=== PATIENT | female | born 1995 | race African-American/Black ===

== ENCOUNTER 2017-01-03 09:44 | Emergency (ER) | payer SELFPAY ==
[2017-01-03] MEDS ORDERED: NS 1,000 ML IV ONE (09:53)
[2017-01-03 10:00] LABS: % IMMATURE GRANULYOCYTES 0.2 % (0.0-1.1); ABSOLUTE IMMATURE GRANULOCYTES 0.01 10^3/uL (0.00-0.10); ADD DIFF? NO; ADD MORPH? NO; ADD SCAN? NO; ATYPICAL LYMPHOCYTE FLAG 10 (0-99); FRAGMENT RBC FLAG 0 (0-99); HEMATOCRIT 40.8 % (38.0-47.0); HEMOGLOBIN 13.9 g/dL (12.6-16.3); LEFT SHIFT FLG 0 (0-99); LIPEMIA HEMOLYSIS FLAG 90 (0-99); MEAN CELL HEMOGLOBIN 31.7 pg (27.9-34.1); MEAN CELL HEMOGLOBIN CONCENTR. 34.1 g/dL (32.4-36.7); MEAN CELL VOLUME 92.9 fL (81.5-99.8); MEAN PLATELET VOLUME 9.4 fL (8.7-11.7); PLATELET CLUMPS FLAG 10 (0-99); PLATELET COUNT 315 10^3/uL (150-400); RED BLOOD CELL COUNT 4.39 10^6/uL (4.18-5.33); RED CELL DISTRIBUTION WIDTH 13.5 % (11.5-15.2)
--- NOTE | 2017-01-03 10:00 | EDPHY ---
H & P HPI/ROS: CHIEF COMPLAINT: Syncope HISTORY OF PRESENT ILLNESS: 21-year-old female presents after a syncopal episode. She is currently homeless and slept outside last night. She apparently had a syncopal episode [place] front of the [place] this morning. She states that she felt lightheaded and nauseated and then lost consciousness. She did not injure herself. No prior history of recurrent syncopal episodes. Last menstrual period was 12/15/2016, and regular. REVIEW OF SYSTEMS: Constitutional: No fever, no chills Eyes: No visual changes ENT: No sore throat Respiratory: No cough, no shortness of breath Cardiac: No chest pain Gastrointestinal: No nausea, no vomiting, no abdominal pain Genitourinary: no dysuria Musculoskeletal: No leg pain or swelling Skin: No rash Neurological: No headache Psychiatric: Anxiety Past Medical/Surgical History: Denies Social History: Homeless, moved from [place] 3 days ago to go to art school at [employer]. Physical Exam: General Appearance: Alert, well-appearing Eyes: Pupils equal and round, no conjunctival pallor or injection ENT, Mouth: Mucous membranes moist Neck: Normal inspection, no tenderness Respiratory: Lungs are clear to auscultation Cardiovascular: Regular rate and rhythm Gastrointestinal: Abdomen is soft and nontender Neurological: Alert, oriented x3, cranial nerves II through XII intact, motor 5 /5, sensory intact to light touch, normal gait. Skin: Warm and dry, no rash Extremities: Nontender, no pedal edema Psychiatric: Tearful Constitutional: Initial Vital Signs Temperature (C) 36.9 C 01/03/17 10:07 Heart Rate 99 01/03/17 10:07 Respiratory Rate 18 01/03/17 10:07 Blood Pressure 137/99 H 01/03/17 10:07 O2 Sat (%) 94 01/03/17 10:07 O2 Delivery Mode Room Air Medical Decision Making - Diagnostics EKG Interpretation: EKG interpreted by me reveals normal sinus rhythm, rate 82, no ST or T segment changes. ED Course/Re-evaluation: IV normal saline 1 L given. Patient was asymptomatic throughout her emergency department stay. Unclear whether she actually had a syncopal episode or not. She is not hypothermic and there is no evidence trauma or medical illness. She was given resources by the rn case management for primary care follow-up and for the [facility] locations. Differential Diagnosis: Differential diagnosis includes though is not limited to cardiac dysrhythmia, CVA, TIA, GI bleed, sepsis, hypoglycemia. - Data Points Laboratory Results: Laboratory Results 01/03/17 09:50 01/03/17 09:50 01/03/17 09:50 WBC 5.61 10^3/uL (3.80-9.50) RBC 4.39 10^6/uL (4.18-5.33) Hgb 13.9 g/dL (12.6-16.3) Hct 40.8 % (38.0-47.0) MCV 92.9 fL (81.5-99.8) MCH 31.7 pg (27.9-34.1) MCHC 34.1 g/dL (32.4-36.7) RDW 13.5 % (11.5-15.2) Plt Count 315 10^3/uL (150-400) MPV 9.4 fL (8.7-11.7) Neut % (Auto) 44.4 % (39.3-74.2) Lymph % (Auto) 43.5 % (15.0-45.0) [place] % (Auto) 8.7 % (4.5-13.0) Eos % (Auto) 2.5 % (0.6-7.6) Baso % (Auto) 0.7 % (0.3-1.7) Nucleat RBC Rel Count 0.0 % (0.0-0.2) Absolute Neuts (auto) 2.49 10^3/uL (1.70-6.50) Absolute Lymphs (auto) 2.44 10^3/uL (1.00-3.00) Absolute Monos (auto) 0.49 10^3/uL (0.30-0.80) Absolute Eos (auto) 0.14 10^3/uL (0.03-0.40) Absolute Basos (auto) 0.04 10^3/uL (0.02-0.10) Absolute Nucleated RBC 0.00 10^3/uL (0-0.01) Immature Gran % 0.2 % (0.0-1.1) Immature Gran # 0.01 10^3/uL (0.00-0.10) Sodium 138 mEq/L (134-144) Potassium 5.0 mEq/L (3.5-5.2) Chloride 105 mEq/L (97-110) Carbon Dioxide 26 mEq/l (22-31) Anion Gap 7 mEq/L (8-16) BUN 15 mg/dL (7-23) Creatinine 0.9 mg/dL (0.6-1.0) Estimated GFR > 60 Glucose 77 mg/dL (70-100) Calcium 9.6 mg/dL (8.5-10.4) Beta HCG, Qual NEGATIVE Medications Given: Discontinued Medications Sodium Chloride (Ns) 1,000 mls @ 0 mls/hr IV ONCE ONE PRN Reason: Wide Open Stop: 01/03/17 09:54 Last Admin: 01/03/17 09:56 Dose: 1,000 mls Departure - Departure Disposition: Home, Routine, Self-Care Clinical Impression: Syncope Qualifiers: Syncope type: vasovagal syncope Qualifier Code: (R55) Syncope and collapse Condition: Good Instructions: Syncope (ED) Referrals: [facility] [Outside] - Follow Up Only If Needed
--- NOTE | 2017-01-03 10:05 | CPEKG ---
Heart Rate: 82 RR Interval: 732 P-R Interval: 188 QRSD Interval: 84 QT Interval: 380 QTC Interval: 444 P [place]: 73 QRS [place]: 68 T Wave [place]: 72 EKG Severity - NORMAL ECG - EKG Impression: SINUS RHYTHM Electronically Signed By: Gina Alonso 03-Jan-2017 11:15:37
[2017-01-03 10:09] VITALS: TEMP 98.4
[2017-01-03 10:14] LABS: ANION GAP 7 mEq/L (8-16); CALCIUM 9.6 mg/dL (8.5-10.4); CARBON DIOXIDE 26 mEq/l (22-31); CHLORIDE 105 mEq/L (97-110); CREATININE 0.9 mg/dL (0.6-1.0); GLOMERULAR FILTRATION RATE > 60; GLUCOSE 77 mg/dL (70-100); SODIUM 138 mEq/L (134-144)
[2017-01-03 10:48] VITALS: BP 137/93; PULSE 104; RESP 16; O2SAT 97
== END 2017-01-03 10:47 | disposition home or self-care (01) ==
DX: R55 Syncope and collapse (principal)